=== PATIENT | male | born 2000 | race Two or more races ===

== ENCOUNTER 2020-09-10 19:19 | Emergency (ER) | payer SELFPAY ==
[~2020-09-10] VITALS: Ht 167.6 cm; Wt 70.1 kg
[~2020-09-10 19:19] MED LIST: NALOXONE 1 MG/ML, 2ML ONE
--- NOTE | 2020-09-10 19:23 | NUR ---
1920: 2mg iv narcan.
[2020-09-10] MEDS ORDERED: NALOXONE 1 MG/ML, 2ML IVPush ONE (19:30)
[2020-09-10] MEDS ORDERED: SODIUM CHLORIDE FLUSH 10ML SYR IVF ONE (19:30)
--- NOTE | 2020-09-10 19:32 | NUR ---
PT. WAS DROPPED OFF IN ER CANOPY BY FRIEND. PT. STOPPED BREATHING; RESCUE BREATHS PROVIDED AND PT. BROUGHT BACK TO ED TR04. 2 IV'S ESTABLISHED AND NARCAN ADMIN. AT THIS TIME PT. A&O X 4. PT. STATES HE SNORTED HALF A PERCOCET AND "HIT AN AIR BAR"(NICOTINE) AND THAT IS THE LAST THING HE REMEMBERS. PT. DENIES ANY ATTEMPT AT SELF HARM WITH THESE ACTIONS AND STATES "I HAVE BEEN DOING IT A LOT LATELY AND NEVER HAD ANY PROBLEMS." PT. TEXTING ON HIS PHONE AT THIS TIME. EKG IN PROGRESS. ELYSIA ANY PAST MEDICAL HX, ALLERGIES, OR MEDS.
[2020-09-10 19:41] LABS: BASOPHILS % (AUTO) 1 % (0-1); EOSINOPHILS % (AUTO) 3 % (1-7); LYMPHOCYTES % (AUTO) 32 % (22-44); MEAN CORPUSCULAR HEMOGLOBIN 30.5 pg (27.5-34.5); MEAN CORPUSCULAR HGB CONC 33.4 g/dL (33.2-36.2); MEAN PLATELET VOLUME 8.5 fL (7.4-10.4); MONOCYTES % (AUTO) 8 % (2-9); NEUTROPHILS % (AUTO) 57 % (42-75); PLATELET COUNT 506 x10^3/uL (130-400); RED BLOOD COUNT 4.84 x10^6/uL (4.38-5.82); RED CELL DISTRIBUTION WIDTH 12.8 % (9.4-14.8)
--- NOTE | 2020-09-10 19:45 | NUR ---
PT. VERBALIZED UNDERSTANDING OF POC TO CONTINUE TO MONITOR. PT. EDUCATED ON OPIATE OVERDOSE AND NARCAN. PT. VERBALIZED UNDERSTANDING OF IMPORTANCE TO REMAIN IN ED FOR CONTINUED MONITORING.
[2020-09-10 19:46] LABS: ANION GAP 7 mmol/L (5-15); CALCIUM 9.1 mg/dL (8.5-10.1); CHLORIDE 105 mmol/L (98-107); CREATININE 1.32 mg/dL (0.7-1.3)
[2020-09-10 19:49] LABS: SALICYLATE LEVEL < 1.7 mg/dL (2.8-20.0)
--- NOTE | 2020-09-10 19:58 | NUR ---
O2 TURNED DOWN TO 6L FROM 3L PT. MAINTAINING O2 SAT AT 100%. URINAL PROVIDED AND URINE SAMPLE REQUESTED. GIRLFRIEND ARRIVED TO BS FOR SUPPORT. PT. DENIES NEEDS. PT. TEARFUL. ALL MONITORS IN PLACE, ALL SAFETY MEASURES OBSERVED.
[2020-09-10 20:12] LABS: MD SCAN
--- NOTE | 2020-09-10 20:49 | NUR ---
PT. CONTINUES RESTING ON GURNEY WITH NO DISTRESS. GIRLFRIEND REMAINS AT BS FOR SUPPORT. PT. REMAINS CALM/COOPERATIVE. DENIES NEEDS. URINE SAMPLE SENT TO LAB. VSS.
[2020-09-10 21:20] LABS: AMPHETAMINE SCREEN, URINE Negative (Negative); BARBITURATE SCREEN, URINE Negative (Negative); BENZODIAZEPINE SCREEN, URINE Negative (Negative); CANNABINOID SCREEN, URINE Positive (Negative); COCAINE SCREEN, URINE Negative (Negative); METHADONE SCREEN, URINE Negative (Negative); OPIATE SCREEN, URINE Negative (Negative)
[2020-09-10 21:26] VITALS: BP 111/60
--- NOTE | 2020-09-10 21:26 | NUR ---
PT. REMAINS A&O X 4, HAS BEEN MAINTAINING O2 SATS OF >97% ON RA. NO DISTRESS NOTED. PT. REQUSTING TO GO HOME; PER DR. PHILIPPE PT. TO BE D/C. WILL AWAIT D/C PAPERS.
== END 2020-09-10 21:57 | disposition home or self-care (01) ==
LOC: MERGE 19:19 → EDBD 19:19 → ED 19:49
DX: T40.2X1A Poisoning by other opioids, accidental (unintentional), initial encounter (principal); J96.01 Acute respiratory failure with hypoxia; F17.290 Nicotine dependence, other tobacco product, uncomplicated; R94.31 Abnormal electrocardiogram [ECG] [EKG]; Y92.89 Other specified places as the place of occurrence of the external cause
CPT/HCPCS: 36415; 80048; 80307; 85025; 93005; 96374; 99291; 99406; J2310